=== PATIENT | female | born 1950 | race Caucasian/White ===

== ENCOUNTER 2016-08-08 15:29 | Emergency (ER) | payer MEDICARE ==
[~2016-08-08 15:29] MED LIST: ACET500CAP PO; ALAVERT10 MG PO; ASAB PO; BEN25 PO; BETAP120 PO; BETAPACE80 PO; BIO-FLAX1000 MG PO; BL FLAX SEED1000 MG OR; CALTRA600D PO; CALTRAT600 PO; CLARIT10 PO; CRESTOR5 MG PO; ELIQUIS 5 MG TAB5 MG PO; FLAXSEED; FLONASE NAS; GARLIC PO; IBU-200200 MG PO; JANTOVEN1 MG PO; JANTOVEN4 MG PO; LIPITOR20 PO; MELA3 PO; MULTIPLE VIT PO; NASACORTAQ NAS; OS500+D PO; SUDAFED 24HR1 TAB PO; ZINC GLUCON50 MG PO; [UNRECOGNIZED DRUG - CODE] PO
[2016-08-08 15:52] LABS: BASOPHILS 0.5 %; BASOPHILS ABSOLUTE 0.02 10/3/uL (0.0-0.16); EOSINOPHILS 0.7 %; EOSINOPHILS ABSOLUTE 0.03 10/3/uL (0.0-0.53); HEMATOCRIT 41.6 % (36.0-48.0); HEMOGLOBIN 14.1 g/dL (12.0-16.0); IMMATURE GRANULOCYTES 0.2 %; IMMATURE GRANULOCYTES ABSOLUTE 0.01 10/3/uL (0.0-0.11); LYMPHOCYTES 28.9 %; LYMPHOCYTES ABSOLUTE 1.18 10/3/uL (0.67-4.30); MEAN CORPUS HGB CONC 33.9 g/dL (32.0-36.0); MEAN CORPUSCULAR HEMOGLOB 30.9 pg (26.0-34.0); MEAN CORPUSCULAR VOLUME 91.2 fL (80-100); MEAN PLATELET VOLUME 8.9 fL (9.2-13.0); MONOCYTES 6.6 %; MONOCYTES ABSOLUTE 0.27 10/3/uL (0.21-1.20); NEUTROPHILS 63.1 %; NEUTROPHILS ABSOLUTE 2.57 10/3/uL (2.02-8.40); PLATELET COUNT 198 10/3/uL (150-400); RBC DISTRIBUTION WIDTH 12.3 % (12.0-16.0); RED CELL COUNT 4.56 10/6/uL (4.0-5.6); WHITE BLOOD CELLS 4.1 10/3/uL (4.5-10.5)
[2016-08-08 15:54] LABS: MANUAL DIFF NO %
[2016-08-08 16:01] LABS: INTERNATIONAL NORMAL RATI 1.2 UNITS (-)
[2016-08-08 16:11] LABS: CALCIUM, SERUM 9.1 MG/DL (8.5-10.4); CHEST PAIN PROFILE TAT 0 Hrs 25 Mins; CHLORIDE, SERUM 104 MMOL/L (96-112); CO2 (CARBON DIOXIDE) 29 MMOL/L (24-34); CREATININE 0.81 MG/DL (0.55-1.02); GFR AFRICAN AMERICAN 88 ML/MIN (>=60); GFR NON AFRICAN AMERICAN 76 ML/MIN (>=60); GLUCOSE, SERUM 120 MG/DL (60-99); POTASSIUM, SERUM 3.7 MMOL/L (3.5-5.3); SODIUM, SERUM 141 MMOL/L (135-148); TROPONIN I <0.02 NG/ML (<0.05)
[2016-08-08 16:12] LABS: BUN (BLOOD UREA NITROGEN) 9 MG/DL (6-23)
== END 2016-08-08 17:31 | disposition home or self-care (01) ==
LOC: ER 15:29
PROVIDERS: Emergency Medicine
DX: I48.91 Unspecified atrial fibrillation (principal); Z79.899 Other long term (current) drug therapy
CPT/HCPCS: 71020; 80048; 83735; 84484; 85025; 85610; 85730; 93005; 99285